=== PATIENT | male | born 1970 | race Caucasian/White ===

== ENCOUNTER → 2018-05-29 | Outpatient (CLI) | payer OTHER ==
--- NOTE | ~2018-05-29 | EKG ---
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
== END ==
LOC: CV 15:45
DX: Z01.818 Encounter for other preprocedural examination (principal); R22.0 Localized swelling, mass and lump, head

== ENCOUNTER 2018-06-05 05:20 | Inpatient (IN) | payer OTHER ==
[2018-06-05] VITALS (17 sets, daily range): BP systolic 109–138; BP diastolic 56–82
[~2018-06-05] VITALS: Ht 195.6 cm; Wt 104.3 kg
--- NOTE | ~2018-06-05 | HC ---
[facility] [place] [address] CONSULTATION Name: DON CERVANTES Room #: 460-P [facility] IN M.R.#: [id number] Admission: 06/06/18 Attend Phys: Alvarez Torres MD Discharge: 06/08/18 Date of : 66 Report #: [id number] THIS REPORT FOR: //name// CC: David Torres REASON FOR CONSULTATION: Elevated BUN and creatinine. REASON FOR PRESENTATION: Postoperative squamous cell carcinoma with hemiglossectomy. HISTORY OF PRESENT ILLNESS: A 47-year-old with ongoing issues with squamous cell carcinoma of the tongue. He previously had dysplastic lesions and has undergone 2 surgeries related to the same issues. He was admitted for hemiglossectomy and lymph gary dissection. He has no chronic medical problems. He was found to have elevated BUN and creatinine at 19, 1.4 mandating a Nephrology consultation. PAST MEDICAL HISTORY: 1. Tongue cancer. 2. Tongue dysplastic lesion. 3. Status post hemiglossectomy, lymph node dissections. SOCIAL HISTORY: No drug abuse. 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 . ALLERGIES: No known chronic kidney disease. REVIEW OF SYSTEMS: GENERAL: No fever or chills. CARDIOVASCULAR: No chest pain or palpitation. PULMONARY: No cough or hemoptysis. GASTROINTESTINAL: No nausea or vomiting. GENITOURINARY: No frequency, no urgency. MUSCULOSKELETAL: No epistaxis, no easy bruisability. OUTPATIENT MEDICATIONS: Include alprazolam. PHYSICAL EXAMINATION: GENERAL: Alert, oriented, in no apparent distress. VITAL SIGNS: Blood pressure 120/57. HEAD AND NECK: No jugular venous distention, no bruit, no thyromegaly. CHEST: Decreased air entry bilaterally. CARDIOVASCULAR: No rub detected. ABDOMEN: Soft, nontender. LOWER EXTREMITIES: No edema. HEAD AND NECK: The patient has a scar on the right side of his neck. He has an NG tube. His voice is muffled. [facility] [address] [email or web address] [address] CONSULTATION Name: DON CERVANTES Room #: [address] [place] [address]#: [id number] Admission: 06/06/18 Attend Phys: Alvarez Torres MD Discharge: 06/08/18 Date of : 66 Report #: [id number] LABORATORY DATA: Laboratory values from today revealed that his creatinine is now down to 1.0. ASSESSMENT, IMPRESSION AND PLAN: 1. Elevated BUN and creatinine due to high protein intake, dehydration with his current condition. This has resolved. 2. No further workup is needed. The patient has been evaluated by rigging loft repairer as an outpatient and all workup has been negative. 3. We will sign off. <ELECTRONICALLY SIGNED> By: Keisha Jewell MD 06/18/18 0831 0759 34 Keisha Jewell MD /nt
--- NOTE | ~2018-06-05 | O ---
[facility] [place] [address] OPERATIVE REPORT Name: DON CERVANTES Room #: 240-P [facility]..#: [id number] Admission: 06/05/18 Attend Phys: Alvarez Torres MD Discharge: Date of : 66 Report #: [id number] THIS REPORT FOR: //name// CC: David Torres DATE OF SERVICE: 06/05/2018 SURGEON: Alvarez Torres MD PREOPERATIVE DIAGNOSIS: T1/2 squamous cell carcinoma, right anterior mobile tongue. POSTOPERATIVE DIAGNOSIS: T1/2 squamous cell carcinoma, right anterior mobile tongue. OPERATION PERFORMED: 1. Right hemiglossectomy. 2. Right supraomohyoid neck dissection. INDICATIONS: The patient is a 47-year-old gentleman presenting to ut last week after being lost to follow up for 3 years with a mass on his tongue. Biopsy was proven squamous cell carcinoma, invasive. Recommendations were made for definitive excision. PET scan confirmed uptake in the oral cavity, but no other metastatic disease. 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 He was brought back to the operating room in 04/2014 for a wide local excision of the tongue for suspicious leukoplakia, 1.3 x 14 mm. This showed only hyperkeratosis with acantholysis and mild dysplasia without evidence of malignancy. The patient was cautioned on yearly followup and unfortunately was lost to follow up. He states that he has been following with his dentist. DESCRIPTION OF PROCEDURE: The patient was brought to the operating room and placed supine on the operating table. After adequate general anesthesia was achieved via nasotracheal intubation, he was turned 180 degrees and placed on a Sahu horseshoe headrest. The neck was extended and the attention turned to the oral cavity. Clear cheek guards were placed and a bite block placed on the left side, so that the full tongue could be examined. The lesion was in the anterior mobile tongue in the posterior portion measured about 1.5-2 cm. This appeared infiltrative into the tongue. The tumor was then marked with 2-0 silk sutures, so that this could be retracted to assure that there was no retraction of muscle in the dissection. Once this was mapped out, 1 cm margins were [address] [address] OPERATIVE REPORT Name: DON CERVANTES Room #: [facility]#: [id number] Admission: 06/05/18 Attend Phys: Alvarez Torres MD Discharge: Date of : 66 Report #: [id number] measured around the sutures and tattooed with methylene blue. He was then draped sterilely and prepped with wet towels in anticipation of laser treatment. Saline soaked gauze was placed as a throat pack to protect the tube. The handheld CO2 laser was utilizing, beginning with at 10 parra continuous and increasing to 14 parra continuous. Incision began anteriorly where this was best visualized. Care was taken to mind how this was excised 3 dimensionally, so that an adequate deep muscle margin was taken around the gross tumor at least a cm. This was advanced from dorsal to ventral and anterior to posterior using my fingers to palpate and completely guide the dissection as well as retraction of the previously placed stay sutures to hold the tumor laterally. As I advanced posteriorly, this was then continued around the ventral surface of the tongue 1 cm margin grossly and then extended posteriorly towards the base of tongue 1 cm margin. Complete excision was obtained. This did extend to the midline. Once this was adequately done, the specimen was delivered off the field to pathology. The margins were then confirmed on frozen section. Hemostasis was assured in the tongue with suction Bovie and bipolar. The tongue was able to be closed on itself with interrupted 3-0 Vicryl vertical mattress sutures. Complete closure was achieved. The oral cavity was then irrigated and suctioned. Once complete, attention was then turned to the neck. All drapes were then removed. Gowns and gloves were changed and rescrubbed. The patient was draped sterilely with the right neck prominent. Planned incision was marked out in a relaxed skin tension line for technique of supraomohyoid neck dissection and injected with 1% Xylocaine with 1:100,000 epinephrine. The patient was then prepped and draped in a sterile fashion. The incision was then tattooed with methylene blue for closure. As a separate part of the procedure, the Xomed nerve integrity monitor was applied to the right face for continuous intraoperative monitoring of the facial nerve. Needle electrodes were placed in the soft tissue overlying the sternum and contralateral shoulder. Electrode resistance and impedance was measured and found to be acceptable. Threshold and stimulus intensity parameters were set and the patient was monitored for the entirety of the case of approximately 3 hours in order to locate and protect vital structures. He was then prepped and draped sterilely. The incision was then made to the skin and subcutaneous tissue and platysma. Subplatysmal flaps were elevated superiorly and inferiorly. Flaps were then held superior and inferior by 2-0 silk stay sutures. Dissection was then made beginning in the level one anterior. This was then taken along the larynx to the left of midline and extended up to the mentum. The soft tissue and lymph node bearing tissue of level 1 were swept from anterior to posterior. Dissection continued along the larynx and down the omohyoid muscle to the [facility] [address] [place] [address] OPERATIVE REPORT Name: DON CERVANTES Room #: 240-P [facility]..#: [id number] Admission: 06/05/18 Attend Phys: Alvarez Torres MD Discharge: Date of : 66 Report #: [id number] sternocleidomastoid muscle. A separate incision was made along the sternocleidomastoid muscle and the fascia reflected anteriorly down overlying the jugular vein. Beginning inferiorly, the jugular vein and carotid artery were dissected and the lymph node bearing tissue was swept from inferior to superior completely dissecting both the carotid and the jugular vein. The lymph node bearing tissues were then taken in the level 3 and partial level 4 as this was dissected from inferior to superior. Once this was then based at the level of the hyoid, the hypoglossal nerve was identified deep to the digastric muscle and protected and dissecting along the jugular vein posterior, the spinal accessory nerve was identified and protected. The dissection then began in the submandibular region. The marginal mandibular branch of the facial nerve was identified with probe stimuli. An incision was made inferior on the gland and the fascia elevated, protecting the nerve. The gland was then dissected superiorly where level 1 had begun to be dissected from posterior to anterior. The mylohyoid muscle was then retracted. Its plexus was taken down with clip ligature. The mylohyoid muscle was retracted until the lingual nerve could be identified. The duct extending superiorly to the floor of mylohyoid was clamped between Ligaclips and divided. It appears that a contribution to the submandibular gland was then clipped between Ligaclips and divided. The sweeping from anterior to posterior, this soft tissue was taken down to the level of the parotid. A small portion of the parotid was then removed with the specimen after the nerve had been positively identified. Marginal mandibular branch was protected completely. This left us pedicled on the superior jugular vein. The soft tissue was then taken off this until this was able to be completely dissected. The specimen was then delivered off on to a piece of paper and then oriented for pathology with the lymph node levels. This was handed off to the pathologist. The wound was then irrigated, hemostasis with bipolar cautery and suction and clip ligature. The wound was then closed in layers, closing the deep layer of platysma right at the fascia overlying the submandibular area to the digastric muscle with interrupted 3-0 Vicryl. A 3-0 Vicryl was used to close platysma and 4-0 Vicryl deep dermal sutures. Prior to closure, a 15-Lithuanian Devendra drain was placed through a separate stab incision, curled into the wound and connected to bulb suction. This was sutured in place with 2-0 silk. Once this was in position, the wound was then closed completely with marla on epidermis. Mastisol and 1/4-inch Steri-Strips applied followed by an Op-Site. At the end of the procedure, a Dobbhoff tube was placed through the right naris as the left naris was being utilized for his endotracheal tube. The patient was then delivered to the recovery room in good condition. Sponge and needle counts were correct. No other complications. Blood loss was about 25 mL. He will be watched overnight for monitoring presuming he may be discharged to home in the next couple of days. Written and verbal discharge instructions and emergency precautions have been given to his family. Discharge medications include clindamycin 300 mg t.i.d. for 10 days, Phenergan suppository 25 mg 1 per rectum q. 4-6 hours p.r.n., hydrocodone/acetaminophen 7.5/325 one to two q. 4-6 hours p.r.n. Peridex oral rinse 15 mL rinse b.i.d. He is instructed on light activity and a soft diet. The patient will see speech pathology for [facility] [address] [place] [address] OPERATIVE REPORT Name: DON CERVANTES Room #: 240-P [facility].#: [id number] Admission: 06/05/18 Attend Phys: Alvarez Torres MD Discharge: Date of : 66 Report #: [id number] speech and swallowing therapy while in the hospital. Video swallow study may be necessary to assess for any aspiration. <ELECTRONICALLY SIGNED> By: Alvarez Torres MD 06/06/18 0836 1609 1741 Alvarez Torres MD /nt
--- NOTE | ~2018-06-05 | PATH ---
[facility] [place] [address] PATHOLOGY RPT PROCEDURE Name: PRAVEEN WISE Room #: 460-P [facility] IN M.R.#: [id number] Admission: 06/06/18 Date of : 66 Discharge: 06/08/18 Report #: [id number] Path Case #: [id number] [facility] Accession Number: [id number] . 01 Material submitted: . PART A: TONGUE, LS 12 OC ANTERIOR, SS 9 OC DORSAL PART B: SUPRAOMOHYOID NECK DISSECTION . 02 Diagnosis: A. Tongue "partial glossectomy": - INVASIVE MODERATELY DIFFERENTIATED SQUAMOUS CELL CARCINOMA COMPLETELY EXCISED. . B. Supra Hyoid neck dissection: - Lymph nodes (12) reactive changes negative of malignancy. - Level I (6) Level II (2) Level III (1) Level IV (3) - Submandibular gland with mild chronic inflammation. . Surgical Pathology Cancer Case Summary Protocol web posting date: March 2016 LIP AND ORAL CAVITY: Excisional Biopsy, Resection . Procedure ___ Glossectomy: Partial glossectomy . Specimen Laterality ___ Not specified . Tumor Site ___ Dorsal surface of tongue . CAP Approved Head and Neck Lip and Oral Cavity . Tumor Focality ___ Unifocal . Tumor Size Greatest dimension: 1.5 cm . Histologic Type Squamous Cell Carcinoma ___ Squamous cell carcinoma, conventional . Histologic Grade ___ G2: Moderately differentiated . Specimen Margins ___ Margins uninvolved by invasive carcinoma [facility] [address] [place] [address] PATHOLOGY RPT PROCEDURE Name: PRAVEEN WISE Roger Room #: 460-P DIS IN [facility].#: [id number] Admission: 06/06/18 Date of : 66 Discharge: 06/08/18 Report #: [id number] Path Case #: [id number] . Lymph-Vascular Invasion ___ Not identified . Perineural Invasion ___ Not identified . Regional lymph nodes: ___ Number of nodes involved: 0 ___ Number of nodes examined: 12 . For All Carcinomas Excluding Mucosal Melanoma Primary Tumor (pT) ___ pT1: Tumor 2 cm or less in greatest dimension . Regional Lymph Nodes (pN) ___ pN0: No regional lymph node metastasis . ([facility]:pit 06/09/2018) [facility]/06/10/2018 . 02 Addendum: . The tumor measured 1.4 cm in thickness. ([facility] 06/12/2018) . Professional services performed by [facility] at [facility], [address] [place], [place] [address]sha Rodríguez, [place] [address]. [facility] by [facility] at [address] [place] [address], [address], [place] [address]. [facility]/06/12/2018 Addendum Electronically Signed by Vito Valdes MD. Pathologist . 02 Electronically signed: . Vito Valdes MD, Pathologist NPI- [id number] . 01 Gross description: . A. Specimen received fresh labeled "Praveen Wise, partial glossectomy", consists of a piece of tongue that measures 3.5 x 2.8 x 1.3 cm. It is oriented by Dr. Torres as a long suture indicating the anterior, and a short suture indicating the dorsal area. In the center, there is a crusted lesion measuring approximately 1.5 cm, and it appears to be away from the margins. The specimen is inked as follows: The anterior margin is inked red, the posterior margin is inked yellow, the dorsal margin is inked green, and the ventral margin is inked blue, and the deep is inked black. Five frozen sections are done and submitted in cassettes A1-A5 and another cross section on A6 (SHA:carlos; 06/05/2018) [facility] [address] [place] [address] PATHOLOGY RPT PROCEDURE Name: PRAVEEN WISE J Room #: 460-P [facility] IN M.R.#: [id number] Admission: 06/06/18 Date of : 66 Discharge: 06/08/18 Report #: [id number] Path Case #: [id number] . B. The specimen is received in formalin, labeled "Praveen Wise, supra-hyoid neck dissection", is a 8.5 x 8.0 x 0.7 cm enblock neck dissection consisting of a submandibular gland measuring 3.0 x 2.4 x 0.5 cm. The specimen is oriented as follows: anterior (inked blue), superior (inked red), posterior (inked black) and inferior (inked blue) and designated level I, level II, level III and level IV. The submandibular gland has a mcgill-brown, lobulated cut surface with no discrete tumor. Multiple lymph nodes are identified within the specimen as follows: Level I: ranging from 0.3 x 0.2 x 0.2 cm up to 0.9 x 0.7 x 0.6 cm, level II: ranging from 0.5 x 0.5 x 0.4 cm up to 1.0 x 0.7 x 0.5 cm, level III: Two possible lymph nodes 0.4 x 0.3 x 0.2 cm and 0.6 x 0.5 x 0.4 cm and level IV: Three lymph nodes ranging from 0.4 x 0.4 x 0.2 cm up to 3.0 x 1.2 x 0.7 cm. The largest lymph node has a mcgill-yellow homogeneous cut surface with hemorrhagic foci. [employer] tissue is submitted as follows: B1. Level I, Three lymph nodes differential inked and bisected B2. Level I, Three lymph nodes differential inked and intact B3. Level II, Single lymph node, bisected B4. Level II, Possible matted lymph nodes, bisected B5. Level III, Two intact lymph nodes B6. Level III, soft tissue containing possible lymph nodes candidates B7. Level III, Possible vessel B8-B10. Level IV Largest lymph node, serially sectioned B11. Level IV Two single lymph nodes differential inked, bisected B12-B15. Submandibular gland (SWS; 06/08/2018) . FROZEN SECTION DIAGNOSIS (Vito Valdes MD.) . FSA A1. Anterior margin: - Negative for malignancy. . FSA A2. Posterior margin: - Negative for malignancy. . FSA A3 Dorsal margin: - Negative for malignancy. . FSA A4. Ventral margin: - Negative for malignancy. . FSA A5. The lesion and the deep margin: - Squamous cell carcinoma. The deep margin is free of malignancy. . These findings were discussed with Dr. Torres and a written report was [facility] [place] [address] PATHOLOGY RPT PROCEDURE Name: PRAVEEN WISE Room #: 460-P DIS IN M.R.#: [id number] Admission: 06/06/18 Date of : 66 Discharge: 06/08/18 Report #: [id number] Path Case #: [id number] placed in the patient's chart. . (SHA:carlos; 06/05/2018) . Frozen section performed at [facility], [address] [place] [address] , [place] [address]. [facility] . 02 Pathologist provided ICD-10: C02.9, K11.23 . 02 CPT . 666436, 422516, 383584, 198613, 968822, 541535, 376590, [id number] Specimen Comment: A courtesy copy of this report has been sent to Specimen Comment: [phone], . Specimen Comment: Report sent to / DR DOE Performed at: [address], [place], [place] [id number] MD Jerome Joshua MD Phone: [phone] Performed at: [address] [id number] MD Pao Li MD Phone: [phone]
[~2018-06-05 05:20] MED LIST: XANAX 0.5 MG0.5 MG PO
[2018-06-06] VITALS (21 sets, daily range): BP systolic 104–139; BP diastolic 57–71
[2018-06-06 04:35] LABS: HEMOGLOBIN 14.5 gm/dL (14.0-18.0); MCH 31.4 pg (26.0-34.0); MCHC 33.8 g/dL (28.0-37.0); MCV 92.9 fL (80.0-100.0); RBC 4.63 mil/uL (4.50-6.00); RDW 11.7 % (10.5-14.5); WBC 14.2 thou/uL (4.0-11.0)
[2018-06-06 04:44] LABS: CALCIUM 9.2 mg/dL (8.5-10.1); CREATININE 1.4 mg/dL (0.7-1.3); POTASSIUM 4.7 mmol/L (3.5-5.1)
[2018-06-06] MEDS ORDERED: CLEOCIN HCL150 MG PO (17:31)
[2018-06-07 06:41] LABS: ALBUMIN 2.9 g/dL (3.4-5.0); CALCIUM 8.6 mg/dL (8.5-10.1); POTASSIUM 3.9 mmol/L (3.5-5.1)
[2018-06-07 08:12] VITALS: BP 118/64
[2018-06-07 15:23] VITALS: BP 123/74
[2018-06-07 19:40] VITALS: BP 127/69
[2018-06-08 05:59] VITALS: BP 120/66
[2018-06-08 12:05] VITALS: BP 120/66
== END 2018-06-08 14:05 | disposition home or self-care (01) | DRG 129 ==
LOC: OR 05:20 → TBA 05:20 → OR 09:59 → ICU 17:20 → 4W 06-06 11:25 → OR 06-06 15:53 → 4W 06-06 15:53 → ENTRNSPT 06-08 12:50 → EDTRNSPTSTS 06-08 12:54 → 4W 06-08 14:05
PROVIDERS: Hospitalist; Otolaryngology Plastic Surgery within the Head & Neck
PROC: 0CB70ZZ Excision of Tongue, Open Approach (ICD-10-PCS; principal; 2018-06-05)
PROC: 07T10ZZ Resection of Right Neck Lymphatic, Open Approach (ICD-10-PCS; 2018-06-05)
PROC: 4A1134G Monitoring of Peripheral Nervous Electrical Activity, Intraoperative, Percutaneous Approach (ICD-10-PCS; 2018-06-05)
DX: C02.2 Malignant neoplasm of ventral surface of tongue (principal); N17.9 Acute kidney failure, unspecified; E86.0 Dehydration; Z88.6 Allergy status to analgesic agent; Z98.52 Vasectomy status; Z79.899 Other long term (current) drug therapy
CPT/HCPCS: 10047; 10204; 50010; 50101; 50386; 50398; 51412; 52190; 52220; 52225; 56524; 56526; 56527; 56528; 56529; 56668; 56760; 57006; 62110; 62900; 70005